=== PATIENT | male | born 1960 | race Caucasian/White ===

== ENCOUNTER → 2017-09-27 | Day surgery (SDC) | payer MEDICARE ==
[2017-09-24 11:26] VITALS: BMI 45.7
[~2017-09-27] MED LIST: IV FLUID CONTINUATION 1,000 ML IV ONE; LACTATED RINGERS 1,000 ML IV SCH; LIDOCAINE 1% INJ 10MG/ML (20 ML MDV) ONE; PROPOFOL 10 MG/ML 20 ML VIAL IV ONE
[2017-09-27 07:02] VITALS: RESP 16; TEMP 97.9
--- NOTE | 2017-09-27 07:53 | P.GSHP ---
History of Present Illness H&P Date: 09/27/17 Chief Complaint: Screening colonoscopy This is a 57-year-old male referred from Dr. Mays. Patient presents today for screening colonoscopy. Past Medical History Past Medical History: Asthma, GERD/Reflux, Hypertension, Osteoarthritis (OA), Sleep Apnea/CPAP/BIPAP Additional Past Medical History / Comment(s): ASTHMA CHILD. USES CPAP. DDD. NEUROPATHY FEET. HAS JAN FOOT DROP, WEARS BRACES. History of Any Multi-Drug Resistant Organisms: None Reported Past Surgical History: Hernia Repair, Tonsillectomy Past Anesthesia/Blood Transfusion Reactions: No Reported Reaction Smoking Status: Never smoker - Past Family History Mother Family Medical History: Pulmonary Embolus Medications and Allergies Home Medications Medication Instructions Recorded Confirmed Type Aspirin [Adult Low Dose Aspirin EC] 81 mg PO DAILY 09/24/17 09/27/17 History Celecoxib [CeleBREX] 200 mg PO BID 09/24/17 09/27/17 History Enalapril [Vasotec] 5 mg PO DAILY 09/24/17 09/27/17 History Omeprazole [PriLOSEC] 20 mg PO AC-BRKFST 09/24/17 09/27/17 History amLODIPine [Norvasc] 2.5 mg PO DAILY 09/24/17 09/27/17 History Allergies Allergy/AdvReac Type Severity Reaction Status Date / Time Tetanus Vaccines and Toxoid Allergy JAUNDICED Verified 09/24/17 11:06 Surgical - Exam Vital Signs Temp Pulse Resp BP Pulse Ox 97.9 F 67 16 136/83 98 09/27/17 06:59 09/27/17 06:59 09/27/17 06:59 09/27/17 06:59 09/27/17 06:59 - General well developed, no distress - Eyes PERRL - ENT normal pinna - Neck no masses - Respiratory normal expansion - Cardiovascular Rhythm: regular - Abdomen Abdomen: soft, non tender Assessment and Plan Assessment: We'll perform screening colonoscopy
[2017-09-27 08:31] VITALS: BP 119/76; PULSE 62
--- NOTE | 2017-09-27 10:08 | P.OP ---
Date of Procedure: 09/27/17 Preoperative Diagnosis: screening colonoscopy Postoperative Diagnosis: diverticulosis Procedure(s) Performed: colonoscopy Anesthesia: MAC Surgeon: Kyle Falcon Pathology: none sent Condition: stable Disposition: PACU Description of Procedure: Patient's placed on the endoscopy table in the lateral position. He received IV sedation. Digital rectal exam was performed which revealed no abnormalities. The prostate was symmetric without nodules. The flexible colonoscope was then placed patient anus passed throughout the entire colon. The ileocecal valve was visualized. The cecum, ascending and transverse colon appeared normal. In the descending; there was mild diverticulosis. Scope was then brought back the rectum and this appeared normal. Scope was withdrawn for patient.
== END ==
LOC: ORWHC2ENDO 06:32
PROVIDERS: ATTEND Surgery
DX: Z12.11 Encounter for screening for malignant neoplasm of colon (principal); K57.90 Diverticulosis of intestine, part unspecified, without perforation or abscess without bleeding; J45.909 Unspecified asthma, uncomplicated; K21.9 Gastro-esophageal reflux disease without esophagitis; I10 Essential (primary) hypertension; M19.90 Unspecified osteoarthritis, unspecified site; G47.30 Sleep apnea, unspecified; Z99.89 Dependence on other enabling machines and devices; G62.9 Polyneuropathy, unspecified; M21.372 Foot drop, left foot; M21.371 Foot drop, right foot; Z88.7 Allergy status to serum and vaccine; Z79.82 Long term (current) use of aspirin; Z79.899 Other long term (current) drug therapy
CPT/HCPCS: J2001; J2704; G0121

== ENCOUNTER → 2023-02-11 | Outpatient (CLI) | payer MEDICARE ==
--- NOTE | 2023-02-11 09:51 | XR ---
EXAMINATION TYPE: XR knee complete LT DATE OF EXAM: 02/11/2023 9:41 AM CLINICAL INDICATION:Male, 62 years old with history of [id number] LT KNEE PAIN; COMPARISON: None. TECHNIQUE: XR knee complete LT; examined in Frontal, lateral and oblique projections. FINDINGS: No evidence of any acute osseous pathology, soft tissue swelling, or joint effusion is no giovana. Tricompartmental osteophyte formation involving the femoral condyles, tibial plateau and patella . Mild joint space narrowing. IMPRESSION: 1. No acute osseous pathology. 2. Mild to moderate tricompartmental osteoarthritic changes.
== END | disposition home or self-care (01) ==
LOC: RADXRYALE 09:27
PROVIDERS: ATTEND Family Medicine
DX: M17.12 Unilateral primary osteoarthritis, left knee (principal)